=== PATIENT | female | born 1945 ===

== ENCOUNTER → 2017-11-02 | Day surgery (SDC) | payer OTHER ==
[~2017-11-02] MED LIST: COZAAR100 MG; DICY10CA; METOPROLOL SUCC25 MG PO; OMEPRAZOLE40 MG; REGLAN 10ML5 MG/ML; [UNRECOGNIZED DRUG - OTHER] PO; [UNRECOGNIZED DRUG - OTHER] PO
== END | disposition home or self-care (01) ==
LOC: ADM 10-28 13:30 → AMB-ENDOS 06:45
DX: D12.8 Benign neoplasm of rectum (principal)

== ENCOUNTER 2017-12-02 07:00 | Day surgery (SDC) | payer OTHER ==
[~2017-12-02] VITALS: Ht 162.6 cm; Wt 59.0 kg
[~2017-12-02 07:00] MED LIST changes: +DOXAZOSIN MESYLA2 MG PO
== END 2017-12-02 13:00 | disposition home or self-care (01) ==
LOC: SURH 07:00 → CIR.AMB 07:00 → EDSTATUS 08:15 → SURH 08:15 → CIR.AMB 13:00 → O/R 13:33 → SURG 13:33 → O/R 15:40
DX: D12.8 Benign neoplasm of rectum (principal)

== ENCOUNTER 2018-06-28 05:15 | Day surgery (SDC) | payer OTHER | END 2018-06-28 14:27 | disposition home or self-care (01) | LOC: AMB-ENDOS 05:15 | DX: D12.8 Benign neoplasm of rectum (principal) ==

== ENCOUNTER 2018-07-06 07:28 | Outpatient (CLI) | payer OTHER | END 2018-07-06 07:35 | disposition home or self-care (01) | LOC: TOM 07:28 | DX: C18.8 Malignant neoplasm of overlapping sites of colon (principal); K62.1 Rectal polyp; K56.600 Partial intestinal obstruction, unspecified as to cause ==

== ENCOUNTER 2018-10-27 07:00 | Day surgery (SDC) | payer OTHER ==
[~2018-10-27] VITALS: Ht 162.6 cm; Wt 59.9 kg
== END 2018-10-27 13:00 | disposition home or self-care (01) ==
LOC: SURH 07:00 → CIR.AMB 07:00 → SURH 10:30 → EDSTATUS 10:30 → O/R 11:38 → SURH 11:38 → O/R 12:33 → CIR.AMB 13:00 → SURH 13:17 → O/R 13:17 → SURH 17:35 → O/R 17:35
DX: K57.30 Diverticulosis of large intestine without perforation or abscess without bleeding (principal); K64.8 Other hemorrhoids